=== PATIENT | male | born 1990 | race Caucasian/White ===

== ENCOUNTER → 2019-11-08 | Outpatient (CLI) | payer BC ==
[~2019-11-08] MED LIST: IOPAMIDOL 370 MG/ML 200 ML INFUS..BTL INJ ONE; SODIUM CHLORIDE 0.9% 250ML 250 ML ONE
--- NOTE | 2019-11-08 15:45 | Diagnostic Imaging Report ---
CT of the abdomen and pelvis. Comparison: None Clinical History: Hematuria Technique: Helical CT scan of the abdomen and pelvis was performed. Intravenous contrast administration was utilized and the CT repeated in the pyelogram phase. Oral contrast administration was not utilized. Coronal and sagittal reconstructions were generated from the raw data. Multiple images were submitted for interpretation. This exam was performed according to our departmental dose-optimization program which includes automated exposure control, adjustment of the mA and/or kV according to patient size Discussion: Inferior chest: Unremarkable. Liver: Unremarkable Spleen: Unremarkable Pancreas: Unremarkable Biliary tree and gallbladder: Unremarkable Adrenal glands: Unremarkable Kidneys and ureters: Normal size. No hydronephrosis. No mass. No calculus. Vasculature: Unremarkable Lymph nodes: No lymphadenopathy Bowel: Unremarkable Pelvis: Urinary bladder is unremarkable. Prostate unremarkable. Seminal vesicles unremarkable. Pelvic wall unremarkable. Peritoneum: Unremarkable Perineal compartments: unremarkable. Fluid: No free fluid Bones: L5 superior endplate Schmorl's node. Body wall: Unremarkable Impression: No calculi are other abnormality seen to explain hematuria. No other significant abnormality. Signed by: Charbel Coy MD on 11/08/2019 3:42 PM
== END ==
LOC: CT 13:56
PROVIDERS: ATTEND Urology
DX: R31.0 Gross hematuria (principal)
CPT/HCPCS: 74178; J7050; Q9967

== ENCOUNTER → 2022-08-15 | Outpatient (CLI) | payer OTHER ==
[~2022-08-15] MED LIST changes: +IOPAMIDOL 370 MG/ML 100 ML INFUS..BTL INJ ONE; -IOPAMIDOL 370 MG/ML 200 ML INFUS..BTL INJ ONE
== END ==
LOC: CT 15:59
PROVIDERS: ATTEND Urology
DX: R31.21 Asymptomatic microscopic hematuria (principal)
CPT/HCPCS: 74178; J7050; Q9967